=== PATIENT | male | born 1990 | race Caucasian/White ===

== ENCOUNTER 2019-07-02 08:24 | Emergency (ER) | payer OTHER ==
[2019-07-02 09:03] VITALS: BP 114/80
--- NOTE | 2019-07-02 09:16 | UC ---
Lower Extremity/Ankle HPI - HPI Summary HPI Summary: 29 yo male with right lower extr swelling x 3 days about three weeks ago had a tattoo done on right lower leg took about four hours with him laying on his right side some paresthesias of right foot extending up right du - History of Current Complaint Chief Complaint: UCLowerExtremity Stated Complaint: RIGHT LEG/FOOT/ANKLE Time Seen by Provider: 07/02/19 09:06 Hx Obtained From: Patient Onset/Duration: Gradual Onset, Lasting Days Severity Initially: Mild Severity Currently: Mild Pain Intensity: 1 Pain Scale Used: 0-10 Numeric Aggravating Factor(s): Standing, Ambulation Alleviating Factor(s): Rest, Elevation Able to Bear Weight: Yes - Allergies/Home Medications Allergies/Adverse Reactions: Allergies Allergy/AdvReac Type Severity Reaction Status Date / Time dog dander Allergy Unknown Unknown Verified 07/02/19 08:50 Reaction Details sesonal Allergy Unknown Uncoded 07/02/19 08:50 Reaction Details Home Medications: Home Medications Naproxen [Naproxen 500 mg tab] 500 mg PO BID PRN #20 tablet 07/02/19 [Rx] PMH/Surg Hx/FS Hx/Imm Hx Previously Healthy: Yes GI/ History: Kidney Stones - Surgical History Surgical History: Yes Surgery Procedure, Year, and Place: LEFT KIDNEY STENT PLACEMENT-08/2015-[facility] [place]. ADENOIDS REMOVED-AGE 5 - Family History Known Family History: Positive: Unknown - patient states his knowns very little of his FHx...? hx HTN, Hypertension - Social History Alcohol Use: None Substance Use Type: None Substance Use Comment - Amount & Last Used: STATES HE DRINKS VERY RARELY BUT WHEN HE DOES IT IS MODERATE TO 'A LOT'. Smoking Status (MU): Never Smoked Tobacco Household Exposure Type: Cigarettes Review of Systems All Other Systems Reviewed And Are Negative: Yes Constitutional: Positive: Negative Skin: Positive: Negative Eyes: Positive: Negative ENT: Positive: Negative Respiratory: Positive: Negative Cardiovascular: Positive: Negative Gastrointestinal: Positive: Negative Genitourinary: Positive: Negative Motor: Positive: Negative Neurovascular: Positive: Negative Musculoskeletal: Positive: Edema - right lower leg/ankle/foot Neurological/Mental Status: Positive: Negative Psychological: Positive: Negative Physical Exam Triage Information Reviewed: Yes Appearance: Well-Appearing, No Pain Distress, Well-Nourished Vital Signs: Initial Vital Signs Temp 98 F 07/02/19 08:51 Pulse 85 07/02/19 08:51 Resp 18 07/02/19 08:51 BP 114/80 07/02/19 08:51 Pulse Ox 98 07/02/19 08:51 Vital Signs Reviewed: Yes Eyes: Positive: Conjunctiva Clear ENT: Positive: Hearing grossly normal. Negative: Nasal congestion, Nasal drainage, Tonsillar swelling, Tonsillar exudate, Muffled voice, Hoarse voice, Uvula midline Dental Exam: Normal Neck: Positive: Supple, Nontender, No Lymphadenopathy Respiratory: Positive: Lungs clear, Normal breath sounds, No respiratory distress, No accessory muscle use Cardiovascular: Positive: RRR, No Murmur Musculoskeletal: Positive: ROM Intact, No Edema Neurological: Positive: Alert Psychological Exam: Normal Skin Exam: Normal Diagnostics - Radiology No standard instances Radiology Interpretation Completed By: Radiologist Summary of Radiographic Findings: doppler neg Lower Extremity Course/Dx - Differential Dx/Diagnosis Provider Diagnosis: Edema of right lower extremity Discharge ED - Sign-Out/Discharge Documenting (check all that apply): Patient Departure All imaging exams completed and their final reports reviewed: No Studies - Discharge Plan Condition: Stable Disposition: HOME Patient Education Materials: Leg Edema (ED) Referrals: Yahir Cameron MD [Primary Care Provider] - 1 Week (if not better) Additional Instructions: elevate - Billing Disposition and Condition Condition: STABLE Disposition: Home
== END 2019-07-02 10:32 | disposition home or self-care (01) ==
LOC: UCCORT 08:24
DX: R60.0 Localized edema (principal); R20.2 Paresthesia of skin; Z91.09 Other allergy status, other than to drugs and biological substances
CPT/HCPCS: 99202; G0463